=== PATIENT | male | born 1965 | race Caucasian/White ===

== ENCOUNTER 2018-01-18 10:40 | Emergency (ER) | payer SELFPAY ==
[~2018-01-18] VITALS: Ht 175.3 cm; Wt 80.0 kg
[2018-01-18] MEDS ORDERED: ACULAR LS0.4 % OU (11:04)
[2018-01-18] MEDS ORDERED: TORADOL PO (11:04)
[2018-01-18 11:17] VITALS: BP 131/71
== END 2018-01-18 11:19 | disposition home or self-care (01) | DRG 918 ==
LOC: ED 10:40
DX: T54.1X1A Toxic effect of other corrosive organic compounds, accidental (unintentional), initial encounter (principal); E78.5 Hyperlipidemia, unspecified; H40.9 Unspecified glaucoma; H10.213 Acute toxic conjunctivitis, bilateral; Y92.89 Other specified places as the place of occurrence of the external cause